=== PATIENT | male | born 1970 | race Caucasian/White ===

== ENCOUNTER 2021-08-14 07:20 | Day surgery (SDC) | payer BC ==
[2021-08-12 15:01] VITALS: BMI 23.0
[~2021-08-14 07:20] MED LIST: FAMOTIDINE 20 MG/2 ML VIAL IV PRN
[2021-08-14] MEDS ORDERED: ONDANSETRON 4 MG/2 ML VIAL ONE (07:49)
[2021-08-14] MEDS ORDERED: LACTATED RINGERS 1,000 ML IV ONE ×3 (08:07→10:29)
[2021-08-14] MEDS ORDERED: ONDANSETRON 4 MG/2 ML VIAL IVP ONE (08:25)
[2021-08-14] MEDS ORDERED: DEXAMETHASONE SOD PHOSPHATE 4 MG/ML 1 ML VIAL IVP ONE (08:26)
[2021-08-14] MEDS ORDERED: MIDAZOLAM 2 MG/2 ML VIAL IVP ONE (08:36)
[2021-08-14] MEDS ORDERED: PROPOFOL 10 MG/ML 20 ML VIAL IV ONE (09:01)
[2021-08-14] MEDS ORDERED: LIDOCAINE 2% INJ 20 MG/ML (2 ML VIAL) ONE (09:01)
[2021-08-14] MEDS ORDERED: SUCCINYLCHOLINE CHLORIDE 100 MG/5 ML SYR IV ONE (09:01)
[2021-08-14] MEDS ORDERED: LIDOCAINE 4% LTA KIT (4 ML) TOPICAL ONE (09:01)
[2021-08-14] MEDS ORDERED: KETOROLAC 15 MG/ML 1 ML VIAL ONE (09:01)
[2021-08-14] MEDS ORDERED: DILTIAZEM 100 MG VIAL.PORT IV ONE (09:01)
[2021-08-14] MEDS ORDERED: HYDROmorphone (PF) 1 MG/ML ONE (09:01)
[2021-08-14] MEDS ORDERED: fentaNYL (PF) 50 MCG/ML 2 ML AMP ONE (09:01)
[2021-08-14] MEDS ORDERED: MIDAZOLAM 2 MG/2 ML VIAL ONE (09:01)
[2021-08-14] MEDS ORDERED: BUPIVACAINE (PF) 0.25% 30 ML VIAL SQ ONE ×2 (09:30)
[2021-08-14] MEDS ORDERED: LIDOCAINE 1%/EPI 1:200,000 MPF 10 ML VIAL SQ ONE ×2 (09:30)
[2021-08-14] MEDS ORDERED: BACITRACIN ZINC 500 UNIT/GM OINT 28.4 GM TUBE TOPICAL ONE (10:15)
[2021-08-14 10:51] VITALS: TEMP 96.8
--- NOTE | 2021-08-14 11:28 | P.OP ---
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 Postoperative Diagnosis: same Procedure(s) Performed: Excision of a 4.1 cm x 2 cm nasal cancer with frozen section and reconstruction with use of bilateral advancement flap closure with secondary defect measuring 8.2 x 4 cm Anesthesia: ESTERA Surgeon: Carlo Ramirez Estimated Blood Loss (ml): 2.5 Pathology: other (nasal cancer) Condition: stable Disposition: PACU Indications for Procedure: Patient had a large nasal cancer biopsied demonstrating malignancy wider resection was recommended Operative Findings: Frozen section reveals that all margins are negative for cancer Description of Procedure: Patient was taken to the operative room and placed in the supine position. A general inhalation anesthetic was admitted to the patient and subsequently intubated with a cuffed endotracheal tube by the department of anesthesia with a functioning IV line in place. The patient was monitored throughout the entire case by the department of anesthesia. The patient was placed in a reversed Trendelenburg position with a 15 head up position. The face was sterilely prepped and draped in usual fashion and the nose was injected with lidocaine 1% with 1 100,000 epinephrine and bupivacaine. 10 minutes were allowed wait for full vasoconstrictive effects to take place The lesion was marked and the lesion measured 4.1 x 2 cm. This was excised with a Superblade Leica plastic scissors and a Brown-Adson forceps and sent for frozen section. Pathologist called and stated that all margins are negative for tumor. This left a large nasal defect measuring 4.1 x 2 cm we then developed medial and lateral advancement flaps extensively from the cheek to the incision. The secondary advancement flap also had burrows triangles removed and the secondary defect measuring 8.2 x 4 cm. After the advancement flaps were developed again leaving a 8.2 x 4 cm defect we rotated the advancement flaps to fill the defect. We closed the deep nasalis layer with the use of 4-0 Monocryl. We closed the deep dermal layer with 4-0 Monocryl. We closed the skin with a 5-0 Prolene in a running nonlocking fashion. Excellent closure was obtained. Mastisol and Steri-Strips were applied over the incision. The patient tolerated this well and follow-up will be in the office in 1 week.
[2021-08-14] MEDS ORDERED: hydrALAZINE HCL 20 MG/ML 1 ML VIAL ONE (12:09)
[2021-08-14 12:12] VITALS: RESP 16
[2021-08-14] MEDS ORDERED: hydrALAZINE HCL 20 MG/ML 1 ML VIAL IVP ONE (12:12)
[2021-08-14 12:25] VITALS: PULSE 71
[2021-08-14 12:42] VITALS: BP 154/95
== END 2021-08-14 12:54 | disposition home or self-care (01) ==
LOC: OR 07:20
PROVIDERS: ATTEND Otolaryngology
DX: C44.321 Squamous cell carcinoma of skin of nose (principal)
CPT/HCPCS: 14301; 88305; 88331; J2250; J0360; J1100; J2405; J3010; J1170; J1885; J0330; J2704; J2001